=== PATIENT | male | born 1940 | race Caucasian/White ===

== ENCOUNTER → 2023-07-27 07:38 | Outpatient (REF) | payer OTHER, SELFPAY | LOC: RAD 07:38 | PROVIDERS: ATTENDING PHYSICIAN Surgery Vascular Surgery; FAMILY PHYSICIAN Family Medicine | DX: I71.40 Abdominal aortic aneurysm, without rupture, unspecified (principal) | CPT/HCPCS: 76770 ==

== ENCOUNTER → 2023-08-10 08:56 | Outpatient (REF) | payer OTHER, SELFPAY | LOC: HWRAD 08:56 | PROVIDERS: ATTENDING PHYSICIAN Surgery Vascular Surgery; FAMILY PHYSICIAN Family Medicine | DX: I71.40 Abdominal aortic aneurysm, without rupture, unspecified (principal) | CPT/HCPCS: 74174; Q9967 ==

== ENCOUNTER → 2023-09-20 07:03 | Outpatient (REF) | payer OTHER, SELFPAY | LOC: HWRCS 07:03 | PROVIDERS: ATTENDING PHYSICIAN Internal Medicine; FAMILY PHYSICIAN Family Medicine | DX: Z01.810 Encounter for preprocedural cardiovascular examination (principal); I71.40 Abdominal aortic aneurysm, without rupture, unspecified | CPT/HCPCS: 93306 ==

== ENCOUNTER → 2023-09-21 11:47 | Outpatient (REF) | payer OTHER, SELFPAY | LOC: DHCBC/DCA 11:47 | PROVIDERS: ATTENDING PHYSICIAN Internal Medicine; FAMILY PHYSICIAN Family Medicine | DX: Z01.810 Encounter for preprocedural cardiovascular examination (principal); I71.40 Abdominal aortic aneurysm, without rupture, unspecified | CPT/HCPCS: 78452; 93017; A9500; J2785 ==

== ENCOUNTER 2023-10-07 10:24 | Inpatient (IN) | payer OTHER, SELFPAY ==
[2023-10-03 09:45] VITALS: BMI 26.7
[2023-10-03 10:44] LABS: % Basophils 0.8 % (0-2); % Eosinophils 3.4 % (0-6); % Immature Granulocytes 0.3 % (0-0.5); % Lymphocytes 21.8 % (20.5-51.1); % Monocytes 9.3 % (1.7-9.3); % Neutrophils 64.4 % (42.2-75.2); Absolute Basophils 0.1 10^3/uL (0-0.2); Absolute Eosinophils 0.2 10^3/uL (0-0.7); Absolute Lymphocytes 1.4 10^3/uL (1.2-3.4); Absolute Monocytes 0.6 10^3/uL (0.1-0.6); Absolute Neutrophils 4.2 10^3/uL (1.4-6.5); Hematocrit 41.9 % (39.0-52.0); Hemoglobin 14.1 g/dL (13.0-18.0); Mean Corp Hgb Conc. 33.7 g/dL (33.0-37.0); Mean Corpuscular Hgb 28.8 pg (27.0-31.0); Mean Corpuscular Volume 85.5 fL (80.0-94.0); Mean Platelet Volume 11.4 fL (7.4-10.4); Nucleated Red Blood Cells % 0 % (-); Platelet Count 149 10^3/uL (130-400); Red Cell Dist. Width 13.3 % (11.5-14.5); White Blood Cell Count 6.6 10^3/uL (4.8-10.8)
[2023-10-03 10:53] LABS: INR 1.01; PT 13.1 Sec (11.4-14.6)
[2023-10-03 10:54] LABS: APTT 28.7 Sec (23.4-35.0)
[2023-10-03 10:56] LABS: Blood Urea Nitrogen 18 mg/dl (9-20); Calcium 9.4 mg/dl (8.4-10.2); Carbon Dioxide 36 mmol/L (22-30); Chloride 103 mmol/L (98-107); Estimated Creatinine Clearance 64 ml/min; Glucose 117 mg/dl (70-99); Potassium 5.2 mmol/L (3.5-5.1); Sodium 144 mmol/L (135-145); eGFR > 60.00
[2023-10-07] VITALS (10 sets, daily range): BP systolic 114–188; BP diastolic 57–96
[2023-10-07] MEDS: PERIDEX 0.12% ORAL RINSE 15 ML PO (11:45)
[2023-10-07] MEDS: BACTROBAN NASAL 1 GRAM NASAL (11:45)
--- NOTE | 2023-10-07 13:19 | W.SUR.PREOP ---
Pre-Operative Surgical Note
-
I have examined this patient prior to the performance of the scheduled procedure.
The patient's condition is unchanged from the time of the current History and
Physical and the patient is able to undergo the scheduled procedure.
[2023-10-07 15:47] LABS: ACT-LR - POC 348 Seconds (116-155)
[2023-10-07 16:38] LABS: ACT-LR - POC 260 Seconds (116-155)
--- NOTE | 2023-10-07 17:06 | W.SUR.POST ---
Surgical Immediate Post Op
Note
Pre Op Diagnosis: Abdominal aortic aneurysm
Post Op Diagnosis: Abdominal aortic aneurysm
Procedure Performed: EVAR
Primary Surgeon: Pasha Mendoza MD
Secondary Surgeons: Mikey Mccabe MD, PhD
Anesthesia: Per Anesthesia
Estimated Blood Loss: 50 cc
Fluids: Per Anesthesia
Drains/Shunts: None
Specimens/Cultures: None
Doppler/Duplex/Angio (Y/N): Multiple angios
Complications: None
Operative Findings: Bilateral percutaneous femoral access, uncomplicated ALTO device deployment, perc closure.
--- NOTE | 2023-10-07 17:29 | OR.RPT ---
Operative Report
Operative Report
Date of Operation: 10/07/2023
Pre Op Diagnosis: Large infrarenal abdominal aortic aneurysm
Post Op Diagnosis: Large infrarenal abdominal aortic aneurysm
Procedure:
1.) Endovascular aortic aneurysm repair using Endologix ALTO device
23 mm ALTO aortic main body (right)
16 mm x 160 mm contralateral limb (left)
16 mm x 120 mm ipsilateral limb (right)
2.) Ultrasound-guided percutaneous access to the bilateral common femoral arteries
3.) Introduce wires and catheters into the aorta from bilateral femoral artery access
4.) Pro-glide closure of the bilateral femoral artery access
Surgeon: Pasha Mendoza III, MD
Rail Car Repairman: Mikey Mccabe MD PhD PGY-6
Anesthesia: General
Complications: None
Estimated Blood Loss: Less than 50 cc
Fluoroscopy:
33.2 minutes
1022 mGy
276 DAP
History and Indications for Procedure: 82-year-old male with large infrarenal abdominal aortic aneurysm
Procedure in Detail: Phillip Martinez was correctly identified and placed supine on the operating table. After adequate induction of anesthesia the abdomen, pelvis and bilateral groins were positioned, prepped and draped in the usual sterile
fashion. Preoperative antibiotics were administered. A timeout procedure was performed with the nursing and anesthesia staff confirming the patients identity as well as the nature and laterality of the procedure.
Under ultrasound guidance, bilateral femoral artery sheath access was obtained. The arteries were patent and without calcification. Ultrasound images of the femoral arteries were saved to the medical record. A pre-close technique was performed
bilaterally with 2 offset Proglide closure devices. The sutures were secured and tucked under surgical towels for use at the end of the case. The patient was systemically heparinized.
From the right femoral access a KMP catheter and Bentson wire were advanced to the proximal descending thoracic aorta. The wire was exchanged out through the catheter for a Lunderquist wire. From the left femoral access a Bentson wire was advanced
into the abdominal aorta. A marker pigtail catheter was then placed for angiographic purposes. An aortogram was performed and identified the origins of the renal arteries bilaterally.
The 23 mm ALTO aortic main body device was then loaded onto the right Lunderquist wire after removing the initial femoral sheath. The delivery system and aortic main body were oriented to the desired position. The delivery system was advanced into
the abdominal aorta. An aortogram was performed and identified the origins of the renal arteries bilaterally. The delivery system was then positioned such that the radiopaque fabric markers were just below the lowest renal artery.
The outer sheath was then retracted until the knob met the handle. The first segment of the suprarenal fixation was then deployed by turning the yellow release knob and pulling. I removed the white From the balloon injection port and inflated the
integrated balloon with 5 cc of 4:1 saline:contrast to open the mid crown. I then completely deflated the integrated balloon.
Using the radiopaque markers for orientation, the C-arm was positioned to eliminate parallax. Another aortogram was performed under magnification. The main body was then precisely positioned below the lowest renal artery. The pigtail catheter was
pulled down into the AAA away from the suprarenal fixation stent. With the main body in the desired location the remainder of the suprarenal fixation stent was deployed by pulling the second release knob.
The polymer was prepared on the back table. The green fill cap was then removed from the polymer injection port on the handle and the fill syringe was attached to it.The autoinjector was connected to the fill syringe and polymer was instilled.
Fluoro was used to intermittently observe filling of the main body with polymer. A timer was started to keep track of the polymer set time.
A grand slam 0.014 wire was introduced through the integrated crossover lumen in the main body delivery system. The wire was snared with an EnSnare device from the left 7 Fr sheath. The wire and snare were pulled out from the 8 Guyanese sheath. A 5
Guyanese sheath was then advanced over the 0.014 wire into the contralateral limb gate. A floppy tip Amplatz wire was then advanced through the 5 Guyanese sheath, through the main body and into the proximal descending thoracic aorta. A pigtail
catheter was then placed over the Amplatz wire.
A retrograde arteriogram was performed in an oblique C-arm projection to visualize the iliac bifurcation and to measure lengths. A 16 x 160 iliac limb was then inserted over the stiff wire and advance to the proper position with proper overlap. The
limb was deployed without difficulty under roadmap guidance with the distal end in the the common iliac artery, preserving the iliac bifurcation.
At the 20 minute aldair for polymer fill the integrated balloon was used to profile of the proximal aortic seal zone.
The third release knob was pulled to release the catheter from the aortic main body. The catheter handle on the main body deployment system was retracted to re-seat the nosecone in the delivery system outer sheath.
A retrograde arteriogram was then performed on the right with a pigtail catheter over the stiff wire. The iliac bifurcation was visualized and lengths were measured for the ipsilateral iliac limb. A 16 x 120 iliac limb was inserted on the right
under fluoro. Proper overlap was obtained. The limb was deployed under roadmap guidance without difficulty.
A 12 mm x 40 mm angioplasty balloon was used to treat the contralateral limb gate overlap and proximal portion of the iliac limb. A 12 mm x 80 mm angioplasty balloon was used to treat the ipsilateral iliac limb overlap and proximal portion of the
limb. A Q50 balloon was then inserted and the and distal seal zones were profiled. The balloon was readvanced into the main body and the Lunderquist wire removed. A pigtail catheter was inserted and advanced to the proximal main body.
A completion aortogram demonstrated an excellent technical result. The aneurysm was excluded. No endoleaks were seen. There was brisk flow through the stent and iliac limbs. The renal arteries were widely patent bilaterally. The iliac bifurcations
were preserved bilaterally.
The Proglide sutures were secured bilaterally after removing the sheaths and wires. Protamine was administered. Additional pressure was applied to the puncture sites bilaterally for 10 minutes. Hemostasis was achieved bilaterally.
Sterile dressings were applied.
The patient tolerated the procedure well and was taken to the PACU in stable condition. He had palpable pedal pulses at the conclusion of the case.
Attestation: I was present and responsible for the entire procedure
Signed:
Pasha Mendoza III, MD
[facility]
[phone] (cell)
[2023-10-07 17:45] LABS: Blood Urea Nitrogen 19 mg/dl (9-20); Calcium 7.7 mg/dl (8.4-10.2); Carbon Dioxide 24 mmol/L (22-30); Chloride 108 mmol/L (98-107); Estimated Creatinine Clearance 91 ml/min; Glucose 112 mg/dl (70-99); Potassium 3.7 mmol/L (3.5-5.1); Sodium 140 mmol/L (135-145); eGFR > 60.00
[2023-10-07 17:56] LABS: APTT 30.2 Sec (23.4-35.0)
[2023-10-07 18:06] LABS: Hemoglobin 12.7 g/dL (13.0-18.0); Mean Corp Hgb Conc. 34.3 g/dL (33.0-37.0); Mean Corpuscular Volume 84.5 fL (80.0-94.0); Mean Platelet Volume 11.3 fL (7.4-10.4); Platelet Count 121 10^3/uL (130-400); Red Blood Cell Count 4.38 10^6/uL (4.70-6.10); Red Cell Dist. Width 13.2 % (11.5-14.5); White Blood Cell Count 7.4 10^3/uL (4.8-10.8)
[2023-10-07] MEDS: LOW STRENGTH ASPIRIN 81 MG PO (18:14)
[2023-10-07] MEDS: NSS 1000 IV (18:18)
[2023-10-07 18:22] LABS: INR 1.21; PT 15.2 Sec (11.4-14.6)
[2023-10-07] MEDS: CARDENE 200 IV (18:51)
--- NOTE | 2023-10-07 19:06 | PTCARENOTE ---
arrived to ICU 3362 from PACU via bed. pulses bounding, surgical site assessed, art line zero and amari. cuff pressure noted quite different, using art line for medications. jacque townsend per order. call smith in reach. updated re: plan of care.
skin warm and dry, mouth also dry, tolerating clear liquids.
[2023-10-07] MEDS: KCL 20 MEQ PO (20:57)
[2023-10-07] MEDS: CARDIZEM CD 240 MG PO (20:57)
[2023-10-07] MEDS: PROSCAR 5 MG PO (20:58)
[2023-10-07] MEDS: FLOMAX 0.4 MG PO (20:58)
[2023-10-07] MEDS: ROXICODONE 5 MG PO (21:59)
--- NOTE | 2023-10-07 22:00 | PTCARENOTE ---
Assumed care of pt at 1900, pt just back from OR at approx 1840 s/p EVAR. Cardene drip started at 1850 d/t SBP on arterial line reading in 190s (goal 100-165). Physical assessment completed, see nursing shift assessment flowsheet for full details.
SR 70s on monitor with ectopy, frequent PVCs noted, sometimes in bigeminal pattern. ICU SLIVER HANDLER Giana Lewis notified, pt's K+ at 1720 was 3.7 therefore 20mEq KCL ordered and administered, Mag level added on and came back at 2.0. B/L groin sites have
been intact, soft, b/l DP pulses strong, see post cath/neurovascular flowsheet for full details. Call smith and personal items within reach.
[2023-10-07] MEDS: HEPARIN 5000 UNITS SC (23:33)
[2023-10-08] VITALS (18 sets, daily range): BP systolic 102–163; BP diastolic 53–110; BMI 26.9
--- NOTE | 2023-10-08 00:24 | PTCARENOTE ---
Physical and neurovascular assessments unchanged. Pt has been asleep after being medicated for pain with PRN Oxycodone. SR 60s-70s with frequent PVCs. SpO2 96% on 2LNC. Cardene weaned and turned off at approx 2330 and pt has been maintaining goal
SBP.
--- NOTE | 2023-10-08 04:06 | PTCARENOTE ---
Physical and neurovascular assessments unchanged. Pt remains off cardene drip. Has been SB while asleep, HR in 50s, at times going down briefly to the 40s, PVCs still noted.
[2023-10-08] MEDS: NSS 1000 IV (04:18)
[2023-10-08 04:33] LABS: Hematocrit 37.7 % (39.0-52.0); Hemoglobin 13.2 g/dL (13.0-18.0); Mean Corpuscular Hgb 28.4 pg (27.0-31.0); Mean Corpuscular Volume 81.3 fL (80.0-94.0); Mean Platelet Volume 11.4 fL (7.4-10.4); Platelet Count 135 10^3/uL (130-400); Red Blood Cell Count 4.64 10^6/uL (4.70-6.10); Red Cell Dist. Width 13.2 % (11.5-14.5); White Blood Cell Count 9.2 10^3/uL (4.8-10.8)
[2023-10-08 04:38] LABS: INR 1.13; PT 14.4 Sec (11.4-14.6)
[2023-10-08 04:39] LABS: APTT 31.3 Sec (23.4-35.0)
[2023-10-08 04:52] LABS: Blood Urea Nitrogen 20 mg/dl (9-20); Calcium 8.3 mg/dl (8.4-10.2); Carbon Dioxide 23 mmol/L (22-30); Chloride 106 mmol/L (98-107); Estimated Creatinine Clearance 91 ml/min; Glucose 173 mg/dl (70-99); Potassium 4.2 mmol/L (3.5-5.1); Sodium 138 mmol/L (135-145); eGFR > 60.00
[2023-10-08] MEDS: LOW STRENGTH ASPIRIN 81 MG PO (07:41)
[2023-10-08] MEDS: THERAGRAN 1 TABLET PO (07:41)
[2023-10-08] MEDS: HEPARIN 5000 UNITS SC ×2 (07:41→16:12)
[2023-10-08] MEDS: DIOVAN 320 MG PO (07:47)
--- NOTE | 2023-10-08 08:45 | PTCARENOTE ---
Rec'd pt at 0700- pulse checks completed with offgoing shift. Rec'd pt awake alert and oriented resting in bed. States he feels good. Denies pain. DUENAS. Speech is clear. 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 Respirs are unlabored on
2l nc with sats of 97%- changed to RA at 0810 and currently sats are 96%. BS are clear. Monitor SR-SB with 1st'avb-MO.22-.24. Denies chest pain. + palp pulses. No edema. VS as documented. Pt with R radial [place]-site wnl Zeroed and recalibrated. Good
CMS checks to distal extremity. A line running about 15-20 mm/hg higher. Starla dc'd per md order at 0830- pressure held over the site. No swelling or hematoma. Bilateral groin sites approximated with surgical adhesive present. No swelling or
drainage. Extremities are warm. Skin otherwise wnl. Abd is soft with + BS. Denies nausea. Good appetite for breakfast. Thermistor gallego removed at 0830 per md order. Was draining yellow urine. IV NSS infusing via RAC IV site. Capped int L AC. Both
sites wnl. Pt currently assisted oob to the chair. Gait is steady. No dizziness. Plan of care reviewed with pt and family who is at the bedside. Call smith in reach.
--- NOTE | 2023-10-08 08:54 | W.PN.VS ---
Today's Communication / Plan
-
Pathway
Assessment/Plan
-
POD1 EVAR. Doing great
Kelly Alonso
OOB
Possible home later today
Subjective Data
-
Date of Service: October 08, 2023
Looks great
Sitting up in bed eating breakfast
No complaints
Family at bedside
Objective Data
-
Vital Signs
Temp Pulse Resp BP Pulse Ox
97.8 F 61 13 131/63 96
10/08/23 07:42 10/08/23 08:00 10/08/23 08:00 10/08/23 08:00 10/08/23 08:00
Intake and Output
10/07/23 10/08/23 10/09/23
06:59 06:59 06:59
Intake Total 3634.50 / 3714.50 160 / 160
Output Total 2130 / 2190 160 / 160
Balance 1504.50 / 1524.50 0 / 0
Intake:
Oral fluids 1919 / 1919
IV fluids (Total) 1714.50 / 1794.50 160 / 160
Nss 1,000 ml @ 80 mls/hr IV . 880 / 960 160 / 160
[id number] [facility] Rx#:[id number]
cardene 87.50 / 87.50
nss 747 / 747
Output:
UrineDeey 2130 / 2190 160 / 160
Lab Results
10/08/23 04:13
10/08/23 04:13
Calcium 8.3 mg/dl (8.4-10.2) L 10/08/23 04:13
Magnesium 2.0 mg/dl (1.6-2.3) 10/07/23 17:20
Physical Exam
-
NAD
Alert/oriented
Non labored breathing
Abd soft
Groin sites clean/dry
Palp pedal pulses
--- NOTE | 2023-10-08 10:59 | CON.INTV ---
Consultation
Consultation Request
Date/Time Consultation Requested: 10/08/2023
Date/Time Consultation Performed: 10/08/2019
Requesting Provider: Dr. Mendoza
Performing Provider: Dr. Albaro Sevilla
Reason for Consultation: Status post AAA repair/EVAR
Medical History
-
History of Present Illness:
82-year-old man with history of hypertension, BPH, abdominal aortic aneurysm, cardiomyopathy, hyperlipidemia, who was electively admitted for repair of his intra-abdominal aortic aneurysm.
EVAR underwent on 10/06/2023 late in the afternoon without any complications. Currently in the critical care unit for postoperative care.
Patient today feels okay. Denies any pain. Ambulatory. Tolerating diet. Out of bed.
No specific complaints.
Past Medical History
Past Medical History: Other (See assessment and plan)
Social History
Tobacco: Former Smoker
Alcohol: None
Drug: None
Personal:
Living: With Family
Family History
Family History: Reviewed & Not Pertinent
Allergies / Home Medications
Allergies
Allergy/AdvReac Type Severity Reaction Status Date / Time
No Known Allergies Allergy Verified 10/07/23 11:48
Home Medications
�Medication �Instructions �Recorded �Confirmed �Last Taken �Type
CoQ-10 1 cap PO DAILY 09/27/23 10/07/23 10/06/23 07:30 History
diltiazem HCl 120 mg 240 mg PO HS 09/27/23 10/07/23 10/05/23 21:00 History
capsule,extended release 24 hr
finasteride 5 mg tablet 5 mg PO HS 09/27/23 10/07/23 10/05/23 21:30 History
loratadine 10 mg tablet (Claritin) 10 mg PO DAILY PRN allergies 09/27/23 10/07/23 08/08/23 08:00 History
multivitamin 1 tab PO DAILY 09/27/23 10/07/23 10/06/23 07:30 History
naproxen sodium 220 mg tablet 440 mg PO DAILY PRN pain 09/27/23 10/07/23 10/05/23 07:30 History
(Aleve)
rosuvastatin 5 mg tablet 5 mg PO DAILY 09/27/23 10/07/23 10/05/23 21:30 History
tamsulosin 0.4 mg capsule 0.4 mg PO HS 09/27/23 10/07/23 10/05/23 21:30 History
valsartan 320 mg tablet (Diovan) 320 mg PO DAILY 09/27/23 10/07/23 10/06/23 07:30 History
aspirin 81 mg chewable tablet 81 mg PO DAILY #90 tabs 10/07/23 Unknown Rx
Review of Systems
-
History Source: Patient
All other systems: Negative unless noted
Vitals / Labs / Diagnostic Testing
Vital Signs
Temp Pulse Resp BP Pulse Ox
97.8 F 61 13 131/63 97
10/08/23 07:42 10/08/23 08:00 10/08/23 08:00 10/08/23 08:00 10/08/23 08:00
Lab Data
10/08/23 04:13
10/08/23 04:13
Laboratory Results
10/07/23 10/08/23
17:20 04:13
PT 15.2 H 14.4
INR 1.21 1.13
APTT 30.2 31.3
Diagnostic Testing:
Physical Exam
-
HEENT: Normocephalic
Cardiovascular: S1/S2
Respiratory: Clear and Non-Labored Respirations
GI: Soft and Non Distended
Neurology: Awake, Alert, Oriented and No Motor Deficits
Skin: Warm and Other (Groin without hematoma.)
General: Respiratory Distress
Assessment
-
Status post EVAR 10/07/2023
Conditions present prior admission:
Former smoker
Hypertension
BPH
Abdominal aortic aneurysm
History of cardiomyopathy
Hyperlipidemia
History of neuropathy.
-
Assessment and plan:
Postoperative surgical intensive care unit monitoring
Supplemental oxygen as needed
Incentive spirometry
Aspiration precautions
Nebulizers if needed-currently not bronchospastic
Chest x-ray 10/03/2019 reviewed-clear lung
Groin without hematoma.
Neuro and vascular checks per protocol
Vascular surgery following-correspondence and operative notes reviewed
Hemodynamically stable
Restart outpatient medications next
Follow blood sugars
Insulin supplementation as needed
DVT prophylaxis
Tolerating diet
Ambulatory. Increase activity as tolerated.
Possible discharge later today.
No additional critical care interventions. Patient progressed very well postoperatively.
Sign off
--- NOTE | 2023-10-08 11:00 | PTCARENOTE ---
Pt tolerated sitting oob in the chair with no diffiuculty noted. Pt stood up to ambulate and after taking a few steps felt pain/discomfort and swelling at his groin. Staff with pt at the time and pt noted to have about a 4 cm long hematoma/area of
hardness/swelling. Assisted back to bed. Dr. Mendoza notified and currently gentle pressure bieng applied to the site. Pt admits to tenderness with pressure but better than when he first stool up. US of the groin ordered. No drainage from the L groin
incision. R groin wnl. + pulses.
--- NOTE | 2023-10-08 11:00 | PTCARENOTE ---
Pt tolerated sitting oob in the chair with no diffiuculty noted. Pt stood up to ambulate and after taking a few steps felt pain/discomfort and swelling at his Left groin incision. Staff with pt at the time and pt noted to have about a 4 cm long
hematoma/area of hardness/swelling around/above incision. Assisted back to bed. Dr. Mendoza notified and currently gentle pressure being applied to the site x 20 min per md order. Pt admits to tenderness with pressure but better than when he first
stool up. US of the groin ordered. No drainage from the L groin incision. R groin wnl. + pulses
--- NOTE | 2023-10-08 11:30 | PTCARENOTE ---
Pressure held per md order for 20 min- swelling reduced. 2 cm area around groin sl firm and pt admits to tenderness but better then when he first felt it when he stood up. Pulses are + to palpation. No drainage from groin site. Pt aware that he
needs to stay in bed currently. VS as documented
--- NOTE | 2023-10-08 12:14 | PTCARENOTE ---
US here to do US of the L groin. L groin sl firm but no area of swelling. No drainage. Pulses unchanged. No numbness. Pt voided 200 mls of yellow urine. Pt instructed to remain in bed until US resulted and Dr. Mendoza aware. No other changes
--- NOTE | 2023-10-08 12:15 | PTCARENOTE ---
US here to do US of the L groin. L groin sl firm and minimal swelling. No drainage. Pulses unchanged. No numbness. Pt voided 200 mls of yellow urine. Pt instructed to remain in bed until US resulted and Dr. Mendoza aware. No other changes
--- NOTE | 2023-10-08 12:36 | CM ---
CM following re: discharge planning.
Reviewed pt's chart, met with pt. Pt's son and daughter in law at bedside.
Pt is an 82 year old male, admitted with primary dx of POD1 EVAR.
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 No DME, VN or SNF history. Pt stated his daughter cares for his spouse now. Pt stated he is
aware that a plan is to return back home but pt reports he has some discomfort in surgical area and Vascular Surgery is aware.
PCP: [facility] Gordon
Pharmacy: [facility]
D/C plan: home with no needs. Son to transport at discharge.
--- NOTE | 2023-10-08 13:15 | PTCARENOTE ---
Eating lunch. L groin site unchanged. Very minimal swelling and sl firm but no drainage. Plan will be to get pt back oob and then ambulate and see how he does. Voiding yellow urine. No other changes
--- NOTE | 2023-10-08 14:30 | PTCARENOTE ---
Pt ambulated in the bello. No changes in the L groin. Admits to tenderness on palpation but no discomfort with walking. L groin site remains sl firm around the incision and with minimal swelling but no changes from earlier. No dizziness. Currently
resting back in the chair. Pt deciding whether he wants to stay today or be discharged. Support given. Call smith in reach.
--- NOTE | 2023-10-08 15:50 | PTCARENOTE ---
Ambulated again in the bello. Groin sites unchanged. Pt had expresssed some concerns earlier about having issues with his incisions at home and having to come back on a Tuesday. Assured pt that the ER is open all the time but that if he was worried
and wanted to stay until tomorrow Dr. Mendoaz was aware and was fine with that. Pt decided to stay today and get discharged tomorrow. Family remains at the bedside.
[2023-10-08] MEDS: FLUSH (NSS) 1 FLUSH IV (16:18)
--- NOTE | 2023-10-08 18:25 | PTCARENOTE ---
Ambulating in the bello and in the room. No changes in assessment. L groin site is sl ecchymotic and firm but no increase in swelling. Tender only to palpation not with walking. Good appetite for dinner. Family in visiting. Pt expressing comfort that
he is staying. Went over some basic vascular surgery discharge information.
--- NOTE | 2023-10-08 20:07 | PTCARENOTE ---
Assumed care of pt at 1900. Pt is A/O x4, pleasant and cooperative with care. [place], hearing aid in R ear, pt is deaf in L ear. Neurovascular checks now Q4 hours, done at start of shift in tandem with off-going RN and B/L groin sites were unchanged
from what her previous assessment was--right groin tender but site is soft and no ecchymosis, left groin is tender and ecchymotic with small firm area noted. Distal pulses easily palpable. SR/SB on monitor 50s-60s with occasional PVCs. SpO2 97% on
RA. See nursing shift assessment flowsheet for further physical assessment details. Pt has been ambulating to the bathroom independently with steady gait. Currently OOB to chair, watching football game with his sons. Call smith and personal
belongings within reach.
[2023-10-08] MEDS: ROXICODONE 5 MG PO (21:47)
[2023-10-08] MEDS: PROSCAR 5 MG PO (21:47)
[2023-10-08] MEDS: FLOMAX 0.4 MG PO (21:47)
[2023-10-08] MEDS: CARDIZEM CD 240 MG PO (21:47)
[2023-10-09] VITALS (14 sets, daily range): BP systolic 96–140; BP diastolic 42–84
[2023-10-09] MEDS: HEPARIN 5000 UNITS SC ×2 (00:10→09:03)
--- NOTE | 2023-10-09 02:21 | PTCARENOTE ---
Midnight physical assessment and neurovascular assessment unchanged. Pt received PRN Oxycodone before going to sleep, see EMAR, pt has been asleep since around 2200, will ambulate independently to and then get back and bed and hook himself up to
BP cuff and pulse ox.
--- NOTE | 2023-10-09 04:25 | PTCARENOTE ---
Assessment unchanged. Neurovascular checks unchanged. SB 50s on monitor, SpO2 97% on RA.
[2023-10-09] MEDS: LOW STRENGTH ASPIRIN 81 MG PO (09:03)
[2023-10-09] MEDS: DIOVAN 320 MG PO (09:03)
[2023-10-09] MEDS: THERAGRAN 1 TABLET PO (09:03)
--- NOTE | 2023-10-09 10:16 | W.PN.PUL3 ---
Today's Communication / Plan
-
Stable left groin hematoma
Hemodynamically stable
Continue with current care
Discharge planning per primary team
Signed off
Assessment
-
Status post EVAR 10/07/2023
Conditions present prior admission:
Former smoker
Hypertension
BPH
Abdominal aortic aneurysm
History of cardiomyopathy
Hyperlipidemia
History of neuropathy.
-
Assessment and plan:
Postoperative day 2 doing well
Yesterday developed a small hematoma of the left groin while ambulating, pressure was applied for half an hour with controlled.
This morning appears to be stable
Mostly asymptomatic
Hemoglobin stable
Hemodynamically stable
Tolerating diet
-
Vascular surgery to reevaluate today.
Peripheral pulses present. Asymptomatic
Hopefully can discharge home.
Continue outpatient medication
DVT prophylaxis
Discharge planning hopeful today.
Sign off
Subjective Data
-
Date of Service:
Date of Service: October 09, 2023
Chief Complaint: Pulmonary Follow Up (Status post EVAR)
Subjective:
patient has no complaints
Ambulatory
Left groin hematoma stable
Review of Systems
Cardiopulmonary: Dyspnea (n)
GI: Abdominal Pain and Nausea (n)
Objective Data
Data Reviewed
Vital Signs / I&O / Oxygen:
Vital Signs
Temp Pulse Resp BP Pulse Ox
97.8 F 55 14 140/65 91
10/09/23 08:00 10/09/23 06:00 10/09/23 06:00 10/09/23 06:00 10/09/23 06:00
Intake and Output
10/08/23 10/09/23 10/10/23
06:59 06:59 06:59
Intake Total 3634.50 / 3714.50 2630 / 2630
Output Total 2130 / 2190 660 / 660
Balance 1504.50 / 1524.50 1969 / 1969
SaO2 91
Nasal Cannula flow liters per 2
minute
Physical Exam
General: Comfortable
HEENT: Normocephalic
Cardiovascular: S1-S2
Respiratory: Clear and Non-Labored Respirations
GI: Soft and Non Distended
Neurology: Awake, Alert, AO x 3 and No Motor Deficits
Skin: Warm and Other (Left groin hematoma appears to be stable.)
Labs/Micro/Reports
Lab Data
10/08/23 04:13
10/08/23 04:13
--- NOTE | 2023-10-09 12:23 | PTCARENOTE ---
Addendum entered by Liberty Moses RN 10/09/23 12:37:
Verbal okay to discharge by Dr Mendoza this am. Family requested date change of discharge order d/t insurance purposes. Discussed with Dr Mendoza via phone. Date changed in [facility] by this RN d/t MD called to emergent surgery in another hospital and
unable to access [facility].
Original Note:
Pt discharged to home with family. Reviewed all discharge instructions including medications, follow up, wound care, and s/s to report. IVs and tele d/c'd. Taken to car by staff via w/c.
== END 2023-10-09 12:43 | disposition home or self-care (01) | DRG 269 ==
LOC: ICU 10:24
PROVIDERS: Nurse Practitioner Acute Care; ADMITTING PHYSICIAN Surgery Vascular Surgery; CONSULT PHYSICIAN Internal Medicine Critical Care Medicine; FAMILY PHYSICIAN Family Medicine
PROC: 04V03EZ Restriction of Abdominal Aorta with Branched or Fenestrated Intraluminal Device, One or Two Arteries, Percutaneous Approach (ICD-10-PCS; 2023-10-07)
DX: I71.43 Infrarenal abdominal aortic aneurysm, without rupture (principal); I10 Essential (primary) hypertension; N40.0 Benign prostatic hyperplasia without lower urinary tract symptoms; E78.2 Mixed hyperlipidemia; I49.3 Ventricular premature depolarization; R73.03 Prediabetes; Z87.891 Personal history of nicotine dependence; Z79.899 Other long term (current) drug therapy
CPT/HCPCS: 34705; 36415; 71046; 76937; 80048; 83735; 85025; 85027; 85610; 85730; 86850; 86900; 86901; 87070; 93926; C1725; C1760; C1769; C1773; C1892; C1894; Q9967

== ENCOUNTER → 2023-10-26 11:29 | Outpatient (REF) | payer OTHER, SELFPAY | LOC: HWRAD 11:29 | PROVIDERS: ATTENDING PHYSICIAN Registered Nurse; FAMILY PHYSICIAN Family Medicine; OTHER PHYSICIAN Internal Medicine Cardiovascular Disease | DX: I71.43 Infrarenal abdominal aortic aneurysm, without rupture (principal) | CPT/HCPCS: 74174; Q9967 ==

== ENCOUNTER → 2024-05-11 07:55 | Outpatient (REF) | payer OTHER, SELFPAY | LOC: RAD 07:55 | PROVIDERS: ATTENDING PHYSICIAN Surgery Vascular Surgery | DX: I71.43 Infrarenal abdominal aortic aneurysm, without rupture (principal) | CPT/HCPCS: 71275; 74174; Q9967 ==

== ENCOUNTER → 2024-12-12 09:47 | Outpatient (REF) | payer OTHER, SELFPAY | LOC: RAD 09:47 | PROVIDERS: ATTENDING PHYSICIAN Surgery Vascular Surgery; FAMILY PHYSICIAN Family Medicine | DX: I71.43 Infrarenal abdominal aortic aneurysm, without rupture (principal) | CPT/HCPCS: 74174; Q9967 ==